=== PATIENT | male | born 1975 ===

== ENCOUNTER 2023-09-16 08:33 | Day surgery (SDC) | payer OTHER ==
[~2023-09-16 08:33] MED LIST: Sodium Chloride 0.9% 10 ML Syringe FLUSH PRN
[2023-09-16] MEDS ORDERED: Propofol 200 MG/20 ML SDV IV ONE (08:34)
[2023-09-16] MEDS ORDERED: Ketamine 500 mg/10 ML MDV IV ONE (08:34)
[2023-09-16] MEDS ORDERED: Midazolam 1 MG/ML 2 ML SDV IV ONE (08:34)
[2023-09-16] MEDS: Lactated Ringers 1,000 ML IV SCH (09:30)
== END 2023-09-16 11:26 | disposition home or self-care (01) ==
LOC: FB.SDS 08:33
PROVIDERS: ATTEND Surgery
DX: K21.00 Gastro-esophageal reflux disease with esophagitis, without bleeding (principal); K44.9 Diaphragmatic hernia without obstruction or gangrene; K29.80 Duodenitis without bleeding; K31.89 Other diseases of stomach and duodenum; Z79.899 Other long term (current) drug therapy
CPT/HCPCS: 00731; 88305; 88312; J2250; J2704; J3490; J7120